=== PATIENT | female | born 1995 | race Caucasian/White ===

== ENCOUNTER 2017-01-29 19:45 | Emergency (ER) | payer MEDICAID ==
[~2017-01-29] VITALS: Ht 157.5 cm; Wt 57.2 kg
[2017-01-29 21:02] LABS: UA SPECIFIC GRAVITY 1.025 (1.005-1.035); microscopic required? YES; urine erythrocyte 2+ (NEGATIVE)
[2017-01-29 21:04] LABS: BASOPHIL % 1.3 % (0-2)
[2017-01-29 21:06] LABS: PLATELET COUNT 414 x10^3mcL (130-400); RED CELL DISTRIBUTION WIDTH 15.9 % (11.5-14.5)
[2017-01-29 21:10] LABS: CALCIUM 8.7 mg/dL (8.5-10.1); CARBON DIOXIDE 27.5 mmol/L (21-32); CHLORIDE SERUM 108 mmol/L (98-107); CREATININE SERUM 0.7 mg/dL (0.6-1.0); GFR1 > 60 mL/min; GLUCOSE SERUM 102 mg/dL (74-106); POTASSIUM SERUM 3.9 mmol/L (3.5-5.1); SODIUM SERUM 145 mmol/L (136-145)
[2017-01-29 21:15] LABS: ALKALINE PHOSPHATASE 129 U/L (46-116); ALT/SGPT 11 U/L (14-59); AMYLASE 69 U/L (25-115); AST/SGOT 33 U/L (15-37); BILIRUBIN TOTAL 0.29 mg/dL (0.20-1.00); LIPASE 173 IU/L (73-393); TOTAL PROTEIN, SERUM 7.2 g/dL (6.4-8.2)
[2017-01-29 21:17] LABS: ALBUMIN 3.1 g/dL (3.4-5.0)
[2017-01-29 23:49] VITALS: BP 123/88
== END 2017-01-29 23:50 | disposition left against medical advice (07) ==
LOC: ED 19:45
PROVIDERS: Emergency Medicine
DX: O72.2 Delayed and secondary postpartum hemorrhage (principal); J45.909 Unspecified asthma, uncomplicated; Z91.013 Allergy to seafood; Z88.8 Allergy status to other drugs, medicaments and biological substances; Z91.018 Allergy to other foods
CPT/HCPCS: 36415; Q0092

== ENCOUNTER 2017-03-31 21:12 | Inpatient (IN) | payer MEDICAID ==
[~2017-03-31] VITALS: Ht 157.5 cm; Wt 54.6 kg
[2017-03-31 21:52] LABS: BASOPHIL % 1.3 % (0-2); PLATELET COUNT 310 x10^3mcL (130-400)
[2017-03-31 21:56] LABS: RED CELL DISTRIBUTION WIDTH 16.9 % (11.5-14.5)
[2017-03-31 22:01] LABS: CARBON DIOXIDE 27.9 mmol/L (21-32); CHLORIDE SERUM 106 mmol/L (98-107); CREATININE SERUM 0.7 mg/dL (0.6-1.0); GFR1 > 60 mL/min; GLUCOSE SERUM 112 mg/dL (74-106); POTASSIUM SERUM 3.8 mmol/L (3.5-5.1); SODIUM SERUM 141 mmol/L (136-145)
[2017-03-31 22:07] LABS: ALBUMIN 3.8 g/dL (3.4-5.0); ALKALINE PHOSPHATASE 86 U/L (46-116); ALT/SGPT 31 U/L (14-59); AMYLASE 66 U/L (25-115); AST/SGOT 16 U/L (15-37); BILIRUBIN TOTAL 0.6 mg/dL (0.20-1.00); LIPASE 192 IU/L (73-393); TOTAL PROTEIN, SERUM 7.1 g/dL (6.4-8.2)
[2017-04-01] VITALS (8 sets, daily range): BP systolic 98–115; BP diastolic 48–66
[2017-04-01] MEDS ORDERED: CAMILA0.35 MG PO ×2 (04:16→13:01)
[2017-04-01] MEDS ORDERED: PROVENTIL0.09 MG/A1 INH ×2 (04:17→13:01)
[2017-04-01 04:23] LABS: CHOLESTEROL/HDL RATIO 2.9; PHOSPHOROUS 5.4 mg/dL (2.5-4.9)
[2017-04-01 04:32] LABS: FREE T4 1.17 ng/dL (0.76-1.46); FREE THYROXINE INDEX 2.9 ug/dL (1.4-4.5); T4(THYROXINE) 7.7 ug/dL (4.7-13.3)
[2017-04-01 04:38] LABS: microscopic required? NO
[2017-04-01 04:45] LABS: UA SPECIFIC GRAVITY 1.025 (1.005-1.035); urine erythrocyte NEGATIVE (NEGATIVE)
[2017-04-01 04:58] LABS: T3 TOTAL 0.92 ng/mL
[2017-04-01 05:58] LABS: AMPHETAMINE QUAL UR NONE DETECTED (NEG <=1000)
[2017-04-01] MEDS ORDERED: PRI20 PO (13:02)
[2017-04-01] MEDS ORDERED: TYL325 PO (13:09)
== END 2017-04-01 16:23 | disposition home or self-care (01) | DRG 241 ==
LOC: ED 21:12 → DU 04-01 02:27
PROVIDERS: Emergency Medicine; Internal Medicine Gastroenterology; ADMIT Family Medicine
PROC: 0DB68ZX Excision of Stomach, Via Natural or Artificial Opening Endoscopic, Diagnostic (ICD-10-PCS; principal; 2017-04-01 09:30)
DX: K29.70 Gastritis, unspecified, without bleeding (principal); N17.0 Acute kidney failure with tubular necrosis; R73.03 Prediabetes; E83.39 Other disorders of phosphorus metabolism; J45.909 Unspecified asthma, uncomplicated; Z68.22 Body mass index [BMI] 22.0-22.9, adult
CPT/HCPCS: 43235; 82962; 83880; 84439; C9113; J1200; J1610; J1885; J2250; J2270; J2310; J2405; J3010; J3490; J7030; Q0092

== ENCOUNTER 2017-04-17 05:32 | Emergency (ER) | payer MEDICAID ==
[~2017-04-17 05:32] MED LIST: CAMILA0.35 MG PO; PRI20 PO; PROVENTIL0.09 MG/A1 INH; TYL325 PO
[2017-04-17 08:12] LABS: BASOPHIL % 0.4 % (0-2); PLATELET COUNT 336 x10^3mcL (130-400)
[2017-04-17 08:17] LABS: ALBUMIN 3.6 g/dL (3.4-5.0); ALKALINE PHOSPHATASE 74 U/L (46-116); ALT/SGPT 29 U/L (14-59); AST/SGOT 17 U/L (15-37); BILIRUBIN TOTAL 0.5 mg/dL (0.20-1.00); CALCIUM 8.9 mg/dL (8.5-10.1); CARBON DIOXIDE 26.4 mmol/L (21-32); CHLORIDE SERUM 105 mmol/L (98-107); CREATININE SERUM 0.7 mg/dL (0.6-1.0); GFR1 > 60 mL/min; GLUCOSE SERUM 107 mg/dL (74-106); POTASSIUM SERUM 3.7 mmol/L (3.5-5.1); SODIUM SERUM 139 mmol/L (136-145)
[2017-04-17 08:27] LABS: RED CELL DISTRIBUTION WIDTH 16.4 % (11.5-14.5)
[2017-04-17 09:01] VITALS: BP 102/61
== END 2017-04-17 09:38 | disposition home or self-care (01) ==
LOC: ED 05:32
PROVIDERS: Emergency Medicine
DX: R10.30 Lower abdominal pain, unspecified (principal); J45.909 Unspecified asthma, uncomplicated; Z91.041 Radiographic dye allergy status; Z91.013 Allergy to seafood
CPT/HCPCS: J1885; J2765; J3010

== ENCOUNTER 2017-06-15 07:25 | Emergency (ER) | payer MEDICAID ==
[~2017-06-15] VITALS: Ht 157.5 cm; Wt 51.8 kg
[2017-06-15 07:34] VITALS: BP 104/69
== END 2017-06-15 08:23 | disposition home or self-care (01) ==
LOC: ED 07:25
DX: R10.84 Generalized abdominal pain (principal); R11.0 Nausea; J45.909 Unspecified asthma, uncomplicated; Z91.013 Allergy to seafood; Z91.018 Allergy to other foods; Z88.8 Allergy status to other drugs, medicaments and biological substances

== ENCOUNTER 2017-12-07 08:14 | Emergency (ER) | payer MEDICAID ==
[~2017-12-07] VITALS: Ht 157.5 cm; Wt 52.6 kg
[2017-12-07 08:21] VITALS: BP 108/71; Ht 157.5 cm; Wt 52.6 kg
== END 2017-12-07 09:26 | disposition home or self-care (01) ==
LOC: ED 08:14
DX: M25.532 Pain in left wrist (principal); J45.909 Unspecified asthma, uncomplicated; Z91.041 Radiographic dye allergy status; Z91.013 Allergy to seafood; Z91.018 Allergy to other foods
CPT/HCPCS: Q0092

== ENCOUNTER 2019-05-29 11:16 | Emergency (ER) | payer OTHER ==
[~2019-05-29] VITALS: Ht 157.5 cm; Wt 53.7 kg
[2019-05-29 11:28] VITALS: Ht 157.5 cm; Wt 53.7 kg
[2019-05-29 15:49] VITALS: BP 106/66
== END 2019-05-29 15:49 | disposition home or self-care (01) ==
LOC: ED 11:16
DX: S09.8XXA Other specified injuries of head, initial encounter (principal); F10.129 Alcohol abuse with intoxication, unspecified; R11.10 Vomiting, unspecified; J45.909 Unspecified asthma, uncomplicated; R10.816 Epigastric abdominal tenderness; R10.811 Right upper quadrant abdominal tenderness; M25.511 Pain in right shoulder; Z88.8 Allergy status to other drugs, medicaments and biological substances; Z91.013 Allergy to seafood; Z91.018 Allergy to other foods; W18.09XA Striking against other object with subsequent fall, initial encounter; Y93.89 Activity, other specified; Y92.89 Other specified places as the place of occurrence of the external cause; Y99.8 Other external cause status; Y90.9 Presence of alcohol in blood, level not specified
CPT/HCPCS: Q0162

== ENCOUNTER 2019-10-08 14:24 | Emergency (ER) | payer SELFPAY ==
[~2019-10-08] VITALS: Ht 157.5 cm; Wt 55.3 kg
[2019-10-08 14:54] VITALS: Ht 157.5 cm; Wt 55.3 kg
[2019-10-08 16:39] LABS: BASOPHIL % 0.5 % (0-2); PLATELET COUNT 306 x10^3mcL (130-400); RED CELL DISTRIBUTION WIDTH 12.9 % (11.5-14.5)
[2019-10-08 16:46] LABS: CALCIUM 9.1 mg/dL (8.5-10.1); CARBON DIOXIDE 29.1 mmol/L (21-32); CHLORIDE SERUM 105 mmol/L (98-107); CREATININE SERUM 0.7 mg/dL (0.6-1.0); GFR1 > 60 mL/min; GLUCOSE SERUM 94 mg/dL (74-106); POTASSIUM SERUM 4.1 mmol/L (3.5-5.1); SODIUM SERUM 140 mmol/L (136-145)
[2019-10-08 17:17] LABS: microscopic required? NO
[2019-10-08 17:20] LABS: urine erythrocyte NEGATIVE (NEGATIVE)
[2019-10-08 18:44] VITALS: BP 102/58
== END 2019-10-08 20:04 | disposition home or self-care (01) ==
LOC: ED 14:24
PROVIDERS: Emergency Medicine
DX: R10.32 Left lower quadrant pain (principal); R10.31 Right lower quadrant pain; M54.5 Low back pain; J45.909 Unspecified asthma, uncomplicated; R30.0 Dysuria; K59.00 Constipation, unspecified; R19.7 Diarrhea, unspecified; Z91.013 Allergy to seafood; Z91.018 Allergy to other foods
CPT/HCPCS: 36415

== ENCOUNTER 2019-11-28 17:52 | Emergency (ER) | payer OTHER ==
[~2019-11-28] VITALS: Ht 157.5 cm; Wt 55.3 kg
[2019-11-28 17:57] VITALS: Ht 157.5 cm; Wt 55.3 kg
[2019-11-28 18:29] LABS: PLATELET COUNT 285 x10^3mcL (130-400); RED CELL DISTRIBUTION WIDTH 13.1 % (11.5-14.5)
[2019-11-28 18:30] LABS: BASOPHIL % 2.2 % (0-2)
[2019-11-28 19:04] LABS: CALCIUM 8.7 mg/dL (8.5-10.1); CARBON DIOXIDE 25.8 mmol/L (21-32); CHLORIDE SERUM 108 mmol/L (98-107); CREATININE SERUM 0.7 mg/dL (0.6-1.0); GFR1 > 60 mL/min; GLUCOSE SERUM 102 mg/dL (74-106); POTASSIUM SERUM 3.8 mmol/L (3.5-5.1); SODIUM SERUM 143 mmol/L (136-145)
[2019-11-28 19:39] VITALS: BP 109/65
== END 2019-11-28 19:39 | disposition home or self-care (01) ==
LOC: ED 17:52
PROVIDERS: Emergency Medicine
DX: R10.9 Unspecified abdominal pain (principal)
CPT/HCPCS: 36415; J1885; Q0092

== ENCOUNTER 2020-02-15 23:27 | Emergency (ER) | payer OTHER ==
[~2020-02-15] VITALS: Ht 157.5 cm; Wt 54.9 kg
[2020-02-15 23:36] VITALS: Ht 157.5 cm; Wt 54.9 kg
[2020-02-16 01:05] LABS: CALCIUM 8.3 mg/dL (8.5-10.1); CARBON DIOXIDE 27.2 mmol/L (21-32); CHLORIDE SERUM 106 mmol/L (98-107); CREATININE SERUM 0.7 mg/dL (0.6-1.0); GFR1 > 60 mL/min; GLUCOSE SERUM 98 mg/dL (74-106); POTASSIUM SERUM 3.7 mmol/L (3.5-5.1); SODIUM SERUM 143 mmol/L (136-145)
[2020-02-16 01:10] LABS: ALBUMIN 3.8 g/dL (3.4-5.0); ALKALINE PHOSPHATASE 82 U/L (46-116); ALT/SGPT 20 U/L (14-59); AST/SGOT 9 U/L (15-37); BILIRUBIN TOTAL 0.62 mg/dL (0.20-1.00); LIPASE 141 IU/L (73-393); PLATELET COUNT 262 x10^3mcL (130-400); RED CELL DISTRIBUTION WIDTH 12.5 % (11.5-14.5); TOTAL PROTEIN, SERUM 7.1 g/dL (6.4-8.2)
[2020-02-16 02:18] VITALS: BP 115/79
== END 2020-02-16 02:18 | disposition home or self-care (01) ==
LOC: ED 23:27
PROVIDERS: Emergency Medicine
DX: R10.84 Generalized abdominal pain (principal); J45.909 Unspecified asthma, uncomplicated; K21.9 Gastro-esophageal reflux disease without esophagitis; Z91.013 Allergy to seafood; Z91.018 Allergy to other foods; Z88.8 Allergy status to other drugs, medicaments and biological substances

== ENCOUNTER 2020-02-16 09:54 | Emergency (ER) | payer MEDICAID ==
[~2020-02-16] VITALS: Ht 157.5 cm; Wt 54.0 kg
[2020-02-16 09:58] VITALS: Ht 157.5 cm; Wt 54.0 kg
[2020-02-16 11:09] VITALS: BP 113/61
== END 2020-02-16 11:09 | disposition home or self-care (01) ==
LOC: ED 09:54
DX: K29.70 Gastritis, unspecified, without bleeding (principal); K58.9 Irritable bowel syndrome, unspecified; J45.909 Unspecified asthma, uncomplicated; K21.9 Gastro-esophageal reflux disease without esophagitis; Z88.1 Allergy status to other antibiotic agents; Z91.013 Allergy to seafood; Z91.018 Allergy to other foods

== ENCOUNTER 2020-03-08 12:30 | Emergency (ER) | payer OTHER ==
[~2020-03-08] VITALS: Ht 157.5 cm; Wt 51.8 kg
[2020-03-08 12:34] VITALS: Ht 157.5 cm; Wt 51.8 kg
[2020-03-08 13:15] LABS: CALCIUM 8.9 mg/dL (8.5-10.1); CARBON DIOXIDE 28.4 mmol/L (21-32); CHLORIDE SERUM 105 mmol/L (98-107); CREATININE SERUM 0.8 mg/dL (0.6-1.0); GFR1 > 60 mL/min; GLUCOSE SERUM 98 mg/dL (74-106); POTASSIUM SERUM 3.3 mmol/L (3.5-5.1); SODIUM SERUM 140 mmol/L (136-145)
[2020-03-08 13:18] LABS: BASOPHIL % 1.2 % (0-2); PLATELET COUNT 279 x10^3mcL (130-400); RED CELL DISTRIBUTION WIDTH 12.2 % (11.5-14.5)
[2020-03-08 13:19] LABS: ALBUMIN 4.2 g/dL (3.4-5.0); ALKALINE PHOSPHATASE 77 U/L (46-116); ALT/SGPT 13 U/L (14-59); AST/SGOT 13 U/L (15-37); BILIRUBIN TOTAL 1.2 mg/dL (0.20-1.00); LIPASE 118 IU/L (73-393); TOTAL PROTEIN, SERUM 7.4 g/dL (6.4-8.2)
[2020-03-08 14:05] VITALS: BP 121/78
== END 2020-03-08 14:05 | disposition home or self-care (01) ==
LOC: ED 12:30
PROVIDERS: Student in an Organized Health Care Education/Training Program
DX: K62.5 Hemorrhage of anus and rectum (principal); E87.6 Hypokalemia; E80.4 Gilbert syndrome; J45.909 Unspecified asthma, uncomplicated; K21.9 Gastro-esophageal reflux disease without esophagitis; Z88.1 Allergy status to other antibiotic agents; Z91.013 Allergy to seafood; Z88.8 Allergy status to other drugs, medicaments and biological substances; Z91.018 Allergy to other foods

== ENCOUNTER 2020-06-21 01:06 | Emergency (ER) | payer OTHER ==
[~2020-06-21] VITALS: Ht 157.5 cm; Wt 55.3 kg
[2020-06-21 01:14] VITALS: BP 101/65; Ht 157.5 cm; Wt 55.3 kg
== END 2020-06-21 02:39 | disposition left against medical advice (07) ==
LOC: ED 01:06
DX: Z53.21 Procedure and treatment not carried out due to patient leaving prior to being seen by health care provider (principal)

== ENCOUNTER 2020-09-04 11:13 | Emergency (ER) | payer OTHER ==
[~2020-09-04] VITALS: Ht 157.5 cm; Wt 53.1 kg
[2020-09-04 11:19] VITALS: Ht 157.5 cm; Wt 53.1 kg
[2020-09-04 11:49] LABS: microscopic required? NO
[2020-09-04 12:09] LABS: BASOPHIL % 0.8 % (0.2-1.3); PLATELET COUNT 291 x10^3mcL (179-408); RED CELL DISTRIBUTION WIDTH 12.5 % (12.3-17.7)
[2020-09-04 12:34] LABS: CALCIUM 8.8 mg/dL (8.5-10.1); CARBON DIOXIDE 30.8 mmol/L (21-32); CHLORIDE SERUM 105 mmol/L (98-107); CREATININE SERUM 0.6 mg/dL (0.6-1.0); GFR1 > 60 mL/min; GLUCOSE SERUM 90 mg/dL (74-106); POTASSIUM SERUM 3.7 mmol/L (3.5-5.1); SODIUM SERUM 139 mmol/L (136-145)
[2020-09-04 12:38] LABS: ALBUMIN 3.7 g/dL (3.4-5.0); ALKALINE PHOSPHATASE 66 U/L (46-116); ALT/SGPT 17 U/L (14-59); AMYLASE 74 U/L (25-115); AST/SGOT 12 U/L (15-37); BILIRUBIN TOTAL 0.8 mg/dL (0.20-1.00); LIPASE 125 IU/L (73-393); TOTAL PROTEIN, SERUM 6.7 g/dL (6.4-8.2)
[2020-09-04 13:03] LABS: UA SPECIFIC GRAVITY <=1.005 (1.005-1.035); urine erythrocyte NEGATIVE (NEGATIVE)
[2020-09-04 14:15] VITALS: BP 101/57
== END 2020-09-04 14:15 | disposition home or self-care (01) ==
LOC: ED 11:13
PROVIDERS: Emergency Medicine
DX: R10.9 Unspecified abdominal pain (principal); K62.89 Other specified diseases of anus and rectum
CPT/HCPCS: J1885